=== PATIENT | male | born 1950 ===

== ENCOUNTER 2020-07-29 01:38 | Inpatient (IN) | payer MEDICARE ==
[~2020-07-29] VITALS: Ht 162.6 cm; Wt 66.6 kg
[2020-07-29 04:00] VITALS: BP 147/66
[2020-07-29] MEDS ORDERED: hydrALAzine 20 MG/ML, 1ML IVPush PRN (06:30)
[2020-07-29] MEDS ORDERED: DOCUSATE 100 MG CAPSULE PO PRN (06:30)
[2020-07-29] MEDS ORDERED: LORazepam 2 MG/ML, 1ML IV PRN (06:30)
[2020-07-29] MEDS ORDERED: GUAIFENESIN/DM 200-20MG, 10ML UDC PO PRN (06:30)
[2020-07-29] MEDS: SODIUM CHLORIDE 0.9% 1,000 ML IV SCH (06:30)
[2020-07-29] MEDS ORDERED: CYCLOBENZAPRINE 10 MG TABLET PO PRN (06:30)
[2020-07-29] MEDS ORDERED: CHLORDIAZEPOXIDE 25 MG CAPSULE PO PRN ×3 (06:30)
[2020-07-29] MEDS ORDERED: ONDANSETRON 2MG/ML, 2ML IVPush PRN (06:30)
[2020-07-29] MEDS ORDERED: ZOLPIDEM 5MG TABLET PO PRN (06:30)
[2020-07-29] MEDS ORDERED: KETOROLAC 30 MG/1 ML IV PRN (06:30)
[2020-07-29] MEDS ORDERED: CHLORDIAZEPOXIDE 10 MG CAPSULE PO PRN (06:30)
[2020-07-29] MEDS ORDERED: PLEASE ENTER HEIGHT AND WEIGHT MC SCH (07:00)
[2020-07-29] MEDS ORDERED: PLEASE ENTER ALLERGIES MC SCH (07:00)
[2020-07-29 07:05] VITALS: BP 132/66
[2020-07-29 07:17] LABS: BASOPHILS % (AUTO) 0 % (0-1); EOSINOPHILS % (AUTO) 1 % (1-7); LYMPHOCYTES % (AUTO) 19 % (22-44); MEAN CORPUSCULAR HEMOGLOBIN 33.6 pg (27.5-34.5); MEAN CORPUSCULAR HGB CONC 34.4 g/dL (33.2-36.2); MEAN PLATELET VOLUME 8.4 fL (7.4-10.4); MONOCYTES % (AUTO) 7 % (2-9); NEUTROPHILS % (AUTO) 72 % (42-75); PLATELET COUNT 186 x10^3/uL (130-400); RED BLOOD COUNT 3.44 x10^6/uL (4.38-5.82); RED CELL DISTRIBUTION WIDTH 12.8 % (9.4-14.8)
[2020-07-29 07:20] LABS: ANION GAP 16 mmol/L (5-15); CALCIUM 6.5 mg/dL (8.5-10.1); CHLORIDE 96 mmol/L (98-107); CREATININE 6.04 mg/dL (0.7-1.3)
[2020-07-29 08:57] LABS: ALANINE AMINOTRANSFERASE 54 U/L (12-78); ANION GAP 17 mmol/L (5-15); CALCIUM 6.4 mg/dL (8.5-10.1); CHLORIDE 97 mmol/L (98-107); CREATININE 6.06 mg/dL (0.7-1.3)
[2020-07-29 08:59] LABS: ALKALINE PHOSPHATASE 76 U/L (45-117); BILIRUBIN,TOTAL 0.6 mg/dL (0.2-1.0); TOTAL PROTEIN 5.5 g/dL (6.4-8.2)
[2020-07-29] MEDS ORDERED: THIAMINE 200 MG, FOLIC ACID 1 MG in DEXTROSE 5% 50 ML IVPB ONE (09:00)
[2020-07-29] MEDS ORDERED: ENOXAPARIN 40 MG/0.4 ML SQ SCH (09:00)
[2020-07-29] MEDS ORDERED: FOLIC ACID 5 MG/ML IM ONE (09:00)
[2020-07-29] MEDS ORDERED: PYRIDOXINE (Vitamin B6) 50MG TAB PO SCH (09:00)
[2020-07-29] MEDS: HEPARIN 5,000 UNITS/ML, 1ML SQ SCH ×2 (09:46→18:22)
[2020-07-29] MEDS ORDERED: FOMEPIZOLE 1 GM in SODIUM CHLORIDE 0.9% 100 ML IV ONE (10:00)
[2020-07-29] MEDS ORDERED: CHLORDIAZEPOXIDE 5 MG CAPSULE ONE (12:09)
[2020-07-29] MEDS ORDERED: SIMV10TA18 PO (12:20)
[2020-07-29] MEDS ORDERED: METF1000 PO (12:20)
[2020-07-29] MEDS ORDERED: DEXTROSE 4 GM TAB.CHEW PO PRN (15:00)
[2020-07-29] MEDS ORDERED: POTASSIUM CHLORIDE 20 MEQ, MAGNESIUM SULFATE 1 GM, THIAMINE 200 MG, FOLIC ACID 1 MG, MV... IV SCH (15:00)
[2020-07-29] MEDS ORDERED: DEXTROSE 50%, 50ML SYRINGE IVPush PRN (15:00)
[2020-07-29] MEDS ORDERED: GLUCAGON 1 MG IM PRN (15:00)
[2020-07-29 15:20] LABS: SALICYLATE LEVEL 11.6 mg/dL (2.8-20.0)
[2020-07-29 16:00] VITALS: BP 136/80
[2020-07-29] MEDS: INSULIN LISPRO 100 UNITS/ML, PEN SQ-INSULIN SCH ×2 (17:04→20:54)
[2020-07-29 18:46] VITALS: BP 140/76
[2020-07-29] MEDS: SODIUM CHLORIDE FLUSH 10ML SYR IVF SCH (20:54)
[2020-07-29] MEDS: SODIUM CHLORIDE 0.9% IV SCH (23:12)
[2020-07-29] MEDS: FOMEPIZOLE IV SCH (23:12)
[2020-07-30 00:12] LABS: MICROSCOPIC AUTO
[2020-07-30 00:52] VITALS: BP 128/71
[2020-07-30] MEDS: HEPARIN 5,000 UNITS/ML, 1ML SQ SCH ×3 (01:58→17:44)
[2020-07-30] MEDS: SODIUM CHLORIDE 0.9% 1,000 ML IV SCH (03:31)
[2020-07-30 05:35] LABS: BASOPHILS % (AUTO) 0 % (0-1); EOSINOPHILS % (AUTO) 1 % (1-7); LYMPHOCYTES % (AUTO) 10 % (22-44); MEAN CORPUSCULAR HEMOGLOBIN 33.6 pg (27.5-34.5); MEAN CORPUSCULAR HGB CONC 34.5 g/dL (33.2-36.2); MEAN PLATELET VOLUME 8.6 fL (7.4-10.4); MONOCYTES % (AUTO) 8 % (2-9); NEUTROPHILS % (AUTO) 82 % (42-75); PLATELET COUNT 139 x10^3/uL (130-400); RED BLOOD COUNT 3.24 x10^6/uL (4.38-5.82); RED CELL DISTRIBUTION WIDTH 13.1 % (9.4-14.8)
[2020-07-30 05:43] LABS: ALBUMIN 2.6 g/dL (3.4-5.0); ANION GAP 11 mmol/L (5-15); CALCIUM 7.5 mg/dL (8.5-10.1); CHLORIDE 107 mmol/L (98-107)
[2020-07-30 05:52] LABS: % IRON SATURATION 88 % (20-55); ALANINE AMINOTRANSFERASE 46 U/L (12-78); ALKALINE PHOSPHATASE 69 U/L (45-117); BILIRUBIN,TOTAL 1.2 mg/dL (0.2-1.0); CREATININE 3.12 mg/dL (0.7-1.3); IRON LEVEL 165 mcg/dL (65-175); TOTAL IRON BINDING CAPACITY 188 mcg/dL (250-450); TOTAL PROTEIN 5.5 g/dL (6.4-8.2)
[2020-07-30] MEDS: INSULIN LISPRO 100 UNITS/ML, PEN SQ-INSULIN SCH ×4 (07:00→21:00)
[2020-07-30 07:35] VITALS: BP 159/78
[2020-07-30] MEDS ORDERED: POTASSIUM CHLORIDE 20 MEQ TAB.ER.PRT PO ONE (09:00)
[2020-07-30] MEDS: ACETAMINOPHEN 325 MG TABLET PO PRN ×3 (09:09→21:08)
[2020-07-30] MEDS: FOLIC ACID 1 MG TABLET PO SCH (10:56)
[2020-07-30] MEDS: MULTIVITAMIN 1 TABLET PO SCH (10:56)
[2020-07-30] MEDS: THIAMINE 100MG TABLET PO SCH ×2 (10:56→21:04)
[2020-07-30] MEDS: SODIUM CHLORIDE FLUSH 10ML SYR IVF SCH ×2 (10:57→21:00)
[2020-07-30] MEDS: SODIUM CHLORIDE 0.45% 1,000 ML IV SCH ×2 (10:57→21:05)
[2020-07-30] MEDS: SODIUM CHLORIDE 0.9% IV SCH ×2 (11:44→23:12)
[2020-07-30] MEDS: FOMEPIZOLE IV SCH ×2 (11:44→23:12)
[2020-07-30 13:56] VITALS: BP 114/81
[2020-07-30] MEDS ORDERED: LOSA50TA14 PO (18:46)
[2020-07-30] MEDS ORDERED: CITA20TA6 PO (18:46)
[2020-07-30] MEDS ORDERED: AMOX-291 PO (18:46)
[2020-07-30] MEDS ORDERED: OMEP-110 PO (18:46)
[2020-07-30] MEDS ORDERED: SIMV40TA20 PO (18:46)
[2020-07-30] MEDS ORDERED: METF500T17 PO (18:46)
[2020-07-30] MEDS ORDERED: ZOLP-413 PO (18:46)
[2020-07-30] MEDS ORDERED: HYDR-3237 PO (18:46)
[2020-07-30 19:35] VITALS: BP 131/65
[2020-07-30 19:37] VITALS: BP 151/85
[2020-07-31] MEDS: HEPARIN 5,000 UNITS/ML, 1ML SQ SCH ×3 (01:19→16:40)
[2020-07-31 01:32] VITALS: BP 160/72
[2020-07-31 01:59] VITALS: BP 171/79
[2020-07-31 06:00] LABS: ANION GAP 6 mmol/L (5-15); CALCIUM 7.7 mg/dL (8.5-10.1); CHLORIDE 109 mmol/L (98-107)
[2020-07-31 06:03] LABS: CREATININE 1.88 mg/dL (0.7-1.3)
[2020-07-31 06:31] VITALS: BP 155/87
[2020-07-31] MEDS: INSULIN LISPRO 100 UNITS/ML, PEN SQ-INSULIN SCH ×4 (07:00→22:06)
[2020-07-31] MEDS: SODIUM CHLORIDE 0.45% 1,000 ML IV SCH ×2 (08:13→17:45)
[2020-07-31] MEDS: MULTIVITAMIN 1 TABLET PO SCH (10:13)
[2020-07-31] MEDS: THIAMINE 100MG TABLET PO SCH ×2 (10:13→22:05)
[2020-07-31] MEDS: K-PHOS NEUTRAL 250MG TAB PO SCH ×2 (10:13→22:05)
[2020-07-31] MEDS: FOLIC ACID 1 MG TABLET PO SCH (10:14)
[2020-07-31] MEDS: POTASSIUM CHLORIDE 20 MEQ TAB.ER.PRT PO SCH (10:14)
[2020-07-31] MEDS: CHOLECALCIFEROL 5,000u TAB PO SCH (10:14)
[2020-07-31] MEDS: SODIUM CHLORIDE FLUSH 10ML SYR IVF SCH ×2 (10:15→21:00)
[2020-07-31] MEDS: FOMEPIZOLE IV SCH (11:32)
[2020-07-31] MEDS: SODIUM CHLORIDE 0.9% IV SCH (11:32)
[2020-07-31 13:00] VITALS: BP 149/79
[2020-07-31 17:41] LABS: ANA SCREEN NEGATIVE (Negative)
[2020-07-31 18:41] VITALS: BP 157/80
[2020-07-31] MEDS ORDERED: FOMEPIZOLE 1 GM in SODIUM CHLORIDE 0.9% 100 ML IV SCH (23:00)
[2020-08-01] MEDS: ACETAMINOPHEN 325 MG TABLET PO PRN ×2 (00:31→21:55)
[2020-08-01 01:43] VITALS: BP 161/81
[2020-08-01] MEDS: HEPARIN 5,000 UNITS/ML, 1ML SQ SCH ×3 (02:08→17:58)
[2020-08-01] MEDS: SODIUM CHLORIDE 0.45% 1,000 ML IV SCH (05:06)
[2020-08-01] MEDS: INSULIN LISPRO 100 UNITS/ML, PEN SQ-INSULIN SCH ×4 (07:00→21:38)
[2020-08-01 08:41] VITALS: BP 168/81
[2020-08-01] MEDS: K-PHOS NEUTRAL 250MG TAB PO SCH ×2 (09:05→21:36)
[2020-08-01] MEDS: THIAMINE 100MG TABLET PO SCH ×2 (09:05→21:36)
[2020-08-01] MEDS: CHOLECALCIFEROL 5,000u TAB PO SCH (09:05)
[2020-08-01] MEDS: POTASSIUM CHLORIDE 20 MEQ TAB.ER.PRT PO SCH (09:05)
[2020-08-01] MEDS: MULTIVITAMIN 1 TABLET PO SCH (09:05)
[2020-08-01] MEDS: FOLIC ACID 1 MG TABLET PO SCH (09:05)
[2020-08-01] MEDS: SODIUM CHLORIDE FLUSH 10ML SYR IVF SCH ×2 (09:06→21:38)
[2020-08-01] MEDS ORDERED: AMLO-150 PO (09:47)
[2020-08-01] MEDS ORDERED: FOLI1TAB32 PO (09:47)
[2020-08-01] MEDS ORDERED: PHOS250T PO (09:48)
[2020-08-01] MEDS ORDERED: AMLODIPINE 5 MG TABLET PO ONE (10:00)
[2020-08-01 15:56] VITALS: BP 159/77
[2020-08-01 16:34] LABS: ANION GAP 7 mmol/L (5-15); CALCIUM 8.1 mg/dL (8.5-10.1); CHLORIDE 108 mmol/L (98-107); CREATININE 0.91 mg/dL (0.7-1.3)
[2020-08-01 18:44] VITALS: BP_SYST 15; BP_SYST 150; BP_DIAS 78
[2020-08-02] MEDS: HEPARIN 5,000 UNITS/ML, 1ML SQ SCH (02:16)
[2020-08-02 03:29] VITALS: BP 145/64
[2020-08-02] MEDS: INSULIN LISPRO 100 UNITS/ML, PEN SQ-INSULIN SCH (08:30)
[2020-08-02] MEDS: FOLIC ACID 1 MG TABLET PO SCH (08:31)
[2020-08-02] MEDS: MULTIVITAMIN 1 TABLET PO SCH (08:31)
[2020-08-02] MEDS: K-PHOS NEUTRAL 250MG TAB PO SCH (08:31)
[2020-08-02] MEDS: THIAMINE 100MG TABLET PO SCH (08:31)
[2020-08-02] MEDS: SODIUM CHLORIDE FLUSH 10ML SYR IVF SCH (08:31)
[2020-08-02] MEDS: CHOLECALCIFEROL 5,000u TAB PO SCH (08:31)
[2020-08-02] MEDS: POTASSIUM CHLORIDE 20 MEQ TAB.ER.PRT PO SCH (08:31)
[2020-08-02 08:56] VITALS: BP 150/84
[2020-08-02] MEDS ORDERED: CITALOPRAM 20 MG TABLET PO SCH (09:00)
== END 2020-08-02 10:30 | disposition home or self-care (01) | DRG 917 ==
LOC: 4EST 04:00 → DCLOUNGE 08-02 10:20
PROVIDERS: ADMIT Internal Medicine; ATTEND Hospitalist
PROC: 5A1D70Z Performance of Urinary Filtration, Intermittent, Less than 6 Hours Per Day (ICD-10-PCS; principal; 2020-07-29)
PROC: 02HV33Z Insertion of Infusion Device into Superior Vena Cava, Percutaneous Approach (ICD-10-PCS; 2020-07-29)
PROC: B548ZZA Ultrasonography of Superior Vena Cava, Guidance (ICD-10-PCS; 2020-07-29)
DX: T51.0X1A Toxic effect of ethanol, accidental (unintentional), initial encounter (principal); N17.0 Acute kidney failure with tubular necrosis; E87.1 Hypo-osmolality and hyponatremia; E87.2 Acidosis; R45.851 Suicidal ideations; N25.81 Secondary hyperparathyroidism of renal origin; D64.9 Anemia, unspecified; E11.65 Type 2 diabetes mellitus with hyperglycemia; E78.5 Hyperlipidemia, unspecified; E83.51 Hypocalcemia; E87.6 Hypokalemia; F10.20 Alcohol dependence, uncomplicated; I10 Essential (primary) hypertension; Z96.659 Presence of unspecified artificial knee joint; Z79.899 Other long term (current) drug therapy; Z79.891 Long term (current) use of opiate analgesic; Z79.01 Long term (current) use of anticoagulants; Z79.84 Long term (current) use of oral hypoglycemic drugs
CPT/HCPCS: 36415; 36556; 76770; 76937; 77001; 80048; 80053; 80299; 80320; 80329; 81001; 82306; 82330; 82693; 82728; 82962; 83036; 83520; 83540; 83550; 83605; 83615; 83735; 83930; 83935; 83970; 84100; 84443; 85025; 86038; 86160; 86162; 86256; 86704; 86705; 86706; 86803; 87086; 87340; 90935; G0378; J1644; J2405; J3411; J3475; J3480; C1751; G0480; J1451; J1642; J1815; J7030